=== PATIENT | male | born 1995 | race Caucasian/White ===

== ENCOUNTER 2018-05-01 01:47 | Emergency (ER) | payer OTHER ==
[~2018-05-01] VITALS: Ht 165.1 cm; Wt 72.6 kg
[~2018-05-01 01:47] MED LIST: BUCALSEP SPRAY30 ML MM
[2018-05-01] MEDS ORDERED: DICLOFENAC SODI50 MG (02:06)
[2018-05-01] MEDS ORDERED: PNEU16DI2 (02:07)
[2018-05-01] MEDS ORDERED: ACTIDOGESIC CA1 EACH (02:07)
[2018-05-01] MEDS ORDERED: KETO10TA2 PO (08:13)
[2018-05-01] MEDS ORDERED: AMOX-CLAV 875-1 EACH PO (08:13)
[2018-05-01] MEDS ORDERED: MUPIROCIN22 GM TOP (08:13)
== END 2018-05-01 08:22 ==
LOC: ER 01:47
DX: L05.91 Pilonidal cyst without abscess (principal)

== ENCOUNTER 2021-11-13 17:53 | Emergency (ER) | payer OTHER ==
[~2021-11-13] VITALS: Ht 165.1 cm; Wt 77.1 kg
[~2021-11-13 17:53] MED LIST changes: +ACTIDOGESIC CA1 EACH; +AMOX-CLAV 875-1 EACH PO; +DICLOFENAC SODI50 MG; +KETO10TA2 PO; +MUPIROCIN22 GM TOP; +PNEU16DI2
== END 2021-11-13 20:40 | disposition home or self-care (01) ==
LOC: ER 17:53
DX: L02.31 Cutaneous abscess of buttock (principal)